=== PATIENT | male | born 1935 | race Caucasian/White ===

== ENCOUNTER → 2023-10-15 12:53 | Outpatient (CLI) | payer MEDICARE, SELFPAY ==
--- NOTE | 2023-10-15 12:55 | DI.RAD.S_ITS ---
PROCEDURE: XR WRIST LT MIN 3V INDICATIONS: Left wrist injury - FOOSH TECHNIQUE: 4 views of the wrist were acquired. COMPARISON: None. FINDINGS: Bones: Bones are demineralized. 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 Comminuted and mildly impacted intra-articular fracture of the distal radius. No definite intra-articular extension. Soft tissues: No suspicious soft tissue calcifications. IMPRESSION: Comminuted mildly impacted distal radial fracture. No definite intra-articular extension. Approved by: Hamida Collier M.D.,Ph.D. on 10/15/2023 at 13:59
== END ==
PROVIDERS: Referring Provider Registered Nurse; Visit Provider Registered Nurse
DX: S52.502A Unspecified fracture of the lower end of left radius, initial encounter for closed fracture (principal); M25.532 Pain in left wrist
CPT/HCPCS: 73110